=== PATIENT | male | born 1965 | race Two or more races ===

== ENCOUNTER 2016-10-30 14:06 | Emergency (ER) | payer OTHER ==
[~2016-10-30] VITALS: Ht 165.1 cm; Wt 82.0 kg
[2016-10-30 14:14] VITALS: BP 133/77
[2016-10-30] MEDS ORDERED: KETOROLAC 30 MG/1 ML IM ONE (16:00)
[2016-10-30] MEDS ORDERED: KETOROLAC 30 MG/1 ML ONE (16:09)
[2016-10-30] MEDS ORDERED: IBUPROFEN 200 MG TABLET ONE (16:13)
[2016-10-30] MEDS ORDERED: IBUPROFEN 200 MG TABLET PO ONE (16:30)
== END 2016-10-30 17:23 | disposition home or self-care (01) ==
LOC: ED 17:07
DX: S16.1XXA Strain of muscle, fascia and tendon at neck level, initial encounter (principal); S80.812A Abrasion, left lower leg, initial encounter; S00.81XA Abrasion of other part of head, initial encounter; V69.9XXA Occupant (driver) (passenger) of heavy transport vehicle injured in unspecified traffic accident, initial encounter; Y93.89 Activity, other specified; Y92.89 Other specified places as the place of occurrence of the external cause; Y99.9 Unspecified external cause status
CPT/HCPCS: 72050; 99284

== ENCOUNTER 2020-11-06 11:00 | Emergency (ER) | payer MEDICAID, OTHER ==
[~2020-11-06] VITALS: Ht 165.1 cm; Wt 77.9 kg
--- NOTE | 2020-11-06 11:56 | NUR ---
PT C/O LEFT INDEX TOE SWELLING AND PAIN. PT STATES THIS STARTED 3 DAYS AGO AND HAS BEEN WORSENING. PT DENIES OTHER PHYSICAL SYMPTOMS AT THIS TIME. POSITIVE CMS TO EXT.
[2020-11-06 12:19] LABS: BASOPHILS % (AUTO) 1 % (0-1); EOSINOPHILS % (AUTO) 1 % (1-7); LYMPHOCYTES % (AUTO) 34 % (22-44); MEAN CORPUSCULAR HGB CONC 34.4 g/dL (33.2-36.2); MONOCYTES % (AUTO) 13 % (2-9); NEUTROPHILS % (AUTO) 50 % (42-75); PLATELET COUNT 154 x10^3/uL (130-400); RED BLOOD COUNT 4.95 x10^6/uL (4.38-5.82); RED CELL DISTRIBUTION WIDTH 13.7 % (9.4-14.8)
[2020-11-06 12:29] LABS: ALANINE AMINOTRANSFERASE 29 U/L (12-78); ALBUMIN 3.3 g/dL (3.4-5.0); ANION GAP 7 mmol/L (5-15); CALCIUM 8.4 mg/dL (8.5-10.1); CHLORIDE 105 mmol/L (98-107); CREATININE 0.95 mg/dL (0.7-1.3)
[2020-11-06 12:32] LABS: ALKALINE PHOSPHATASE 138 U/L (45-117); BILIRUBIN,TOTAL 0.5 mg/dL (0.2-1.0); TOTAL PROTEIN 7.3 g/dL (6.4-8.2)
[2020-11-06 13:20] VITALS: BP 116/53
--- NOTE | 2020-11-06 13:22 | NUR ---
PT REC'VD DISCHARGE INSTRUCTIONS AND EDUCATION. PT HAD NO FURTHER QUESTIONS. PT AMBULATED TO DC AREA, STEADY GAIT.
== END 2020-11-06 13:38 | disposition home or self-care (01) ==
LOC: ED 13:20
DX: L03.032 Cellulitis of left toe (principal); E11.65 Type 2 diabetes mellitus with hyperglycemia
CPT/HCPCS: 36415; 80053; 85025; 99283